=== PATIENT | male | born 1975 | race Caucasian/White ===

== ENCOUNTER 2019-08-12 09:19 | Inpatient (IN) ==
[~2019-08-12 09:19] MED LIST: *HR* Heparin 10,000 UNIT/10 ML VIAL ONE; 0.9 % Sodium Chloride 1,000 ML ONE; Heparin 1,000 UNITS/500 mL 500 ML ONE; ISOVUE-370 200 ML INFUS..BTL ONE; Nitroglycerin 1,000 MCG/10 ML VIAL IV ONE
[2019-08-12] MEDS ORDERED: *HR* Heparin 5,000 UNIT/ML VIAL IVP ONE ×3 (09:23→09:29)
[2019-08-12] MEDS ORDERED: Aspirin 325 MG TABLET PO ONE (09:23)
[2019-08-12] MEDS ORDERED: *HR* Ticagrelor 90 MG TABLET PO ONE (09:23)
[2019-08-12] MEDS ORDERED: *HR* Midazolam HCl 2 MG/2 ML VIAL ONE (09:27)
[2019-08-12] MEDS ORDERED: Tirofiban 12.5 MG/250ML 12.5 MG/250 ML BAG ONE (09:28)
[2019-08-12] MEDS ORDERED: *HR* FentaNYL (PF) 100 MCG/2 ML VIAL ONE (09:28)
[2019-08-12] MEDS ORDERED: 0.9 % Sodium Chloride 1,000 ML ONE (09:29)
[2019-08-12] MEDS ORDERED: *HR* Heparin 5,000 UNIT/ML VIAL ONE (09:29)
[2019-08-12 09:40] LABS: Mean Platelet Volume 9.9 fL (9.4-12.4)
[2019-08-12 09:41] LABS: Hematocrit 40.9 % (37.5-50.1); Hemoglobin 13.5 g/dL (12.9-16.9); Mean Corpuscular Hemoglobin 25.9 pg (28.0-33.3); Mean Corpuscular Volume 78.5 fL (83.0-100.0); Platelet Count 505 K/mcL (140-400); Red Blood Count 5.21 M/mcL (4.19-5.50); Red Cell Distribution Width 16.2 % (11.5-14.5); White Blood Count 28.1 K/mcL (4.3-11.1)
[2019-08-12 09:43] LABS: INR 1.1
[2019-08-12] MEDS ORDERED: *HR* Atropine Sulfate 1 MG/10 ML SYRINGE ONE (09:45)
[2019-08-12 09:46] LABS: Activated Partial Thrombo Time 31.2 Seconds (26.0-36.0)
[2019-08-12 10:01] LABS: BUN/Creatinine Ratio 13 (6-26); Blood Urea Nitrogen 15 mg/dL (6-20); Calcium 10.4 mg/dL (8.6-10.3); Carbon Dioxide 17 mEq/L (23-29); Chloride 103 mEq/L (98-107); Glucose 141 mg/dL (70-105); Magnesium 1.5 mg/dL (1.6-2.6); Osmolality,Calculated 283 (280-300); Potassium 3.5 mEq/L (3.5-5.1); Sodium 135 mEq/L (136-145); Troponin I 0.03 ng/mL (< 0.04); eGFR For African Americans > 60 (> 60); eGFR For Non-African Americans > 60 (> 60)
[2019-08-12] MEDS ORDERED: Tirofiban 12.5 MG/250ML 12.5 MG/250 ML BAG IVC SCH (10:30)
[2019-08-12 10:48] LABS: Eosinophils # 0.3 K/mcL (0.0-0.6); Lymphocytes # 4.8 K/mcL (0.6-4.6); Monocytes # 1.4 K/mcL (0.0-1.3); Neutrophils # 21.4 K/mcL (1.6-8.9)
[2019-08-12 10:50] LABS: Platelet Estimate Increased (Normal); Reactive Lymphocytes Present (Not Present)
[2019-08-12] MEDS ORDERED: Naloxone 0.4 MG/ML INJ IVP PRN (13:31)
[2019-08-12] MEDS: Nicotine 14 MG PATCH.TD24 TD SCH (16:56)
[2019-08-12] MEDS ORDERED: Levalbuterol Neb 1.25 MG/3 ML IH PRN (19:34)
[2019-08-12] MEDS: *HR* Ticagrelor 90 MG TABLET PO SCH (20:13)
[2019-08-12] MEDS: Acetaminophen 325 MG TABLET PO PRN (21:32)
[2019-08-13] MEDS: Acetaminophen 325 MG TABLET PO PRN ×2 (03:00→09:05)
[2019-08-13 05:28] LABS: Basophils % 0.1 %; Eosinophils # 0.1 K/mcL (0.0-0.6); Eosinophils % 0.5 %; Hematocrit 37.9 % (37.5-50.1); Immature Granulocytes % 0.5 % (0-4); Lymphocytes # 2.7 K/mcL (0.6-4.6); Lymphocytes % 17.3 %; Mean Corpuscular HGB Conc 34.3 g/dL (31.6-35.5); Mean Corpuscular Hemoglobin 26.1 pg (28.0-33.3); Mean Platelet Volume 10.5 fL (9.4-12.4); Monocytes # 0.9 K/mcL (0.0-1.3); Monocytes % 5.6 %; Neutrophils # 11.8 K/mcL (1.6-8.9); Platelet Count 471 K/mcL (140-400); Red Blood Count 4.99 M/mcL (4.19-5.50); Red Cell Distribution Width 16.5 % (11.5-14.5); White Blood Count 15.5 K/mcL (4.3-11.1)
[2019-08-13 05:48] LABS: Albumin 3.9 g/dL (3.5-5.7); Albumin/Globulin Ratio 1.3 (1.1-2.2); Bilirubin,Direct 0.1 mg/dL (0.0-0.2); Bilirubin,Indirect 0.3 mg/dL (0.0-1.0); Bilirubin,Total 0.4 mg/dL (0.3-1.0); Chol/HDL Ratio 10.3 (0-4.9); Magnesium 1.7 mg/dL (1.6-2.6); Total Protein 6.9 g/dL (6.4-8.9)
[2019-08-13 05:50] LABS: BUN/Creatinine Ratio 17 (6-26); Blood Urea Nitrogen 12 mg/dL (6-20); Calcium 9.3 mg/dL (8.6-10.3); Carbon Dioxide 20 mEq/L (23-29); Chloride 107 mEq/L (98-107); Glucose 103 mg/dL (70-105); Osmolality,Calculated 282 (280-300); Potassium 4.2 mEq/L (3.5-5.1); Sodium 136 mEq/L (136-145); eGFR For African Americans > 60 (> 60); eGFR For Non-African Americans > 60 (> 60)
[2019-08-13 07:16] LABS: Estimated Average Glucose 140 mg/dl
[2019-08-13] MEDS ORDERED: Aspirin 81 MG TAB.CHEW PO SCH (09:00)
[2019-08-13] MEDS: *HR* Ticagrelor 90 MG TABLET PO SCH ×2 (09:05→20:07)
[2019-08-13] MEDS: Nicotine 14 MG PATCH.TD24 TD SCH (09:06)
[2019-08-13] MEDS ORDERED: Acetaminophen 325 MG TABLET PO PRN (12:12)
[2019-08-13] MEDS ORDERED: Levalbuterol Neb 1.25 MG/3 ML IH PRN (12:12)
[2019-08-13] MEDS ORDERED: Naloxone 0.4 MG/ML INJ IVP PRN (12:12)
[2019-08-14] MEDS: *HR* Ticagrelor 90 MG TABLET PO SCH (08:58)
[2019-08-14] MEDS ORDERED: Metoprolol XL (24 HR) Succ 25 MG TAB.ER.24H PO SCH ×2 (09:00)
[2019-08-14] MEDS ORDERED: Aspirin 81 MG TAB.CHEW PO SCH (09:00)
[2019-08-14] MEDS ORDERED: Nicotine 14 MG PATCH.TD24 TD SCH (09:00)
[2019-08-14 09:09] VITALS: BP 118/77
== END 2019-08-14 11:50 | disposition home or self-care (01) | DRG 169 ==
LOC: EMEROOARM 09:19 → ICNU 09:34
PROVIDERS: ADMIT Internal Medicine Cardiovascular Disease; ATTEND Internal Medicine Cardiovascular Disease